=== PATIENT | male | born 1975 | race Caucasian/White ===

== ENCOUNTER 2020-10-26 11:18 | Emergency (ER) | payer OTHER ==
[2020-10-26 12:09] LABS: BASOPHIL 0.5 % (0-2); EOSINOPHIL 0.2 % (0-5); HCT 45.8 % (42.0-52.0); HGB 16.4 g/dl (13.2-18.0); MCH 33.7 pg (25.0-31.0); MCHC 35.8 g/dL (32.0-36.0); MONOCYTE 5.7 % (0-12); MPV 9.9 fL (6.0-9.5); NEUTROPHIL 83.2 % (41-80); NRBC 0; PLT 219 K/uL (150-400); RBC 4.87 M/uL (4.70-6.00)
[2020-10-26 13:12] LABS: AMPHETAMINES NEGATIVE (NEGATIVE); BARBITURATES NEGATIVE (NEGATIVE); ECSTASY (MDMA) NEGATIVE (NEGATIVE); MARIJUANA (THC) NEGATIVE (NEGATIVE); METHADONE NEGATIVE (NEGATIVE); OPIATES NEGATIVE (NEGATIVE); OXYCODONE NEGATIVE (NEGATIVE)
[2020-10-26 13:27] LABS: ALBUMIN 4.2 g/dL (3.4-5.0); BILIRUBIN - TOTAL 0.8 mg/dL (0.2-1.0); BUN/CREAT RATIO (CALC) 13.2 RATIO; CREATININE 1.14 mg/dL (0.67-1.17); GLOBULIN (CALCULATION) 3.3 g/dL; MAGNESIUM 2.5 mg/dL (1.8-2.4); POTASSIUM 4.3 mmol/L (3.5-5.1); TOTAL PROTEIN 7.5 g/dL (6.4-8.2)
[2020-10-26] MEDS ORDERED: ZOFRAN4 M1 PO (14:54)
[2020-10-26] MEDS ORDERED: BACTRIM DS TAB1 EACH PO (15:15)
[2020-10-26] MEDS ORDERED: NORCO 5-325 TA1 EACH PO (15:15)
== END 2020-10-26 15:36 | disposition home or self-care (01) ==
LOC: FER 11:18
PROVIDERS: Emergency Medicine
DX: R56.9 Unspecified convulsions (principal); L02.511 Cutaneous abscess of right hand; Z91.030 Bee allergy status
CPT/HCPCS: 36415; 70450; 71045; 80053; 80305; 83735; 84484; 85025; 93005; J2405